=== PATIENT | male | born 1995 | race African-American/Black ===

== ENCOUNTER 2022-07-26 11:00 | Emergency (ER) | payer OTHER ==
[~2022-07-26] VITALS: Ht 175.3 cm; Wt 80.2 kg
[2022-07-26] MEDS ORDERED: IBUP200T46 PO (11:07)
[2022-07-26] MEDS ORDERED: ACETAMINOPHEN 500 MG TAB PO ONE (12:45)
[2022-07-26 12:51] VITALS: BP 120/67
== END 2022-07-26 12:52 | disposition home or self-care (01) ==
LOC: M ED 11:00
DX: S00.83XA Contusion of other part of head, initial encounter (principal); W19.XXXA Unspecified fall, initial encounter; Y92.099 Unspecified place in other non-institutional residence as the place of occurrence of the external cause; J30.1 Allergic rhinitis due to pollen

== ENCOUNTER 2025-10-14 07:35 | Emergency (ER) | payer OTHER ==
[~2025-10-14] VITALS: Ht 172.7 cm; Wt 76.8 kg
[~2025-10-14 07:35] MED LIST: IBUP200T46 PO
[2025-10-14 08:04] LABS: APPEARANCE, URINE CLEAR (CLEAR); BACTERIA, URINE AUTO NEGATIVE (NEGATIVE); BILIRUBIN, URINE AUTO NEGATIVE (NEGATIVE); BLOOD, URINE BLOOD NEGATIVE (NEGATIVE); GLUCOSE, URINE (UA) AUTO NEGATIVE (NEGATIVE); KETONE, URINE AUTO TRACE mg/dL (NEGATIVE); LEUKOCYTE ESTERASE, URINE AUTO NEGATIVE (NEGATIVE); MUCUS, URINE MODERATE (NEGATIVE); NITRITE, URINE AUTO NEGATIVE (NEGATIVE); PROTEIN, URINE AUTO NEGATIVE (NEGATIVE); RBC, URINE AUTO 0 /HPF (0-3); SPECIFIC GRAVITY URINE AUTO 1.029 (1.002-1.035); SQUAMOUS EPITHELIAL CELL UR AU 0 /HPF (0-6); UROBILINOGEN, URINE AUTO 0.2 mg/dL (0.0-2.0); WBC, URINE AUTO 2 /HPF (0-3)
[2025-10-14 11:27] LABS: BASO # 0.0 10^3/uL (0.0-0.2); BASO % 0.6 % (0.0-1.0); EOS # 0.1 10^3/uL (0.0-0.5); EOS % 1.0 % (0.0-3.0); LYMPH # 2.2 10^3/uL (1.5-5.0); LYMPH % 33.1 % (24.0-44.0); MONO # 0.5 10^3/uL (0.0-0.8); MONO % 7.0 % (2.0-8.0); NEUTROPHILS # 3.9 10^3/uL (1.5-8.5); NEUTROPHILS % 58.2 % (36.0-66.0); PLATELET COUNT, AUTOMATED 237 10^3/uL (150-450)
[2025-10-14 11:59] LABS: ALT/SGPT 27 U/L (7.0-40); AST/SGOT 22 U/L (<34); CALCIUM LEVEL 9.6 MG/DL (8.5-10.1); CARBON DIOXIDE LEVEL 32 MMOL/L (20-31); CHLORIDE LEVEL 103 MMOL/L (98-107); CREATININE FOR GFR 1.08 MG/DL (0.70-1.30); GLOMERULAR FILTRATION RATE > 90.0 (>60); POTASSIUM SERUM 4.2 MMOL/L (3.5-5.1); SODIUM LEVEL 144 MMOL/L (136-145)
[2025-10-14 12:00] VITALS: BP 109/59
[2025-10-14 12:05] VITALS: TEMP 98.1; O2SAT 98
[2025-10-14] MEDS ORDERED: PROT20TA11 PO (12:05)
[2025-10-14] MEDS ORDERED: HOME MED LIST COMPLETE! XX SCH (12:05)
[2025-10-14] MEDS ORDERED: IBUP600T42 PO (12:05)
== END 2025-10-14 12:17 | disposition home or self-care (01) ==
LOC: M ED 07:35
DX: R10.11 Right upper quadrant pain (principal)